=== PATIENT | female | born 1985 | race American Indian/Alaskan Native ===

== ENCOUNTER 2016-04-28 22:04 | Emergency (ER) | payer MEDICAID ==
[2016-04-28 23:10] LABS: Hematocrit 29.6 % (30.3-42.9); Hemoglobin 10.4 gm/dl (10.1-14.3); Mean Corpuscular HGB Conc 35 % (30-34); Mean Corpuscular Hemoglobin 32 pg (28-32); Mean Corpuscular Volume 91 fl (79-97); Platelet Count 232 K/mm3 (140-440); Red Blood Count 3.27 M/mm3 (3.65-5.03); Red Cell Distribution Width 13.9 % (13.2-15.2)
[2016-04-28 23:26] LABS: Blood Urea Nitrogen 8 mg/dL (7-17); Calcium 8.8 mg/dL (8.4-10.2); Carbon Dioxide 22 mmol/L (22-30); Chloride 97.5 mmol/L (98-107); Glucose 78 mg/dL (65-100); Sodium 133 mmol/L (137-145)
[2016-04-28 23:27] LABS: Anion Gap 18 mmol/L
--- NOTE | 2016-04-29 00:12 | Ultrasound Report ---
FINAL REPORT PROCEDURE: US OB \T\lt; = 14 WEEKS FETUS TECHNIQUE: Real-time transabdominal sonography of the uterus, placenta, amniotic fluid, adnexa, and fetus was performed with image documentation. Measurements were obtained to determine age/size. M-mode Doppler was used to document heartbeat. CPT 70379 HISTORY: with pelvic pain and abdominal pain. COMPARISON: No prior studies are available for comparison. FINDINGS: There is a single live intrauterine fetus with heart rate 148 beats per minute. Based on crown-rump length this fetus is measuring 13 weeks and 2 days in age which gives a due date of November 01, 2016 based on this exam. There no prior ultrasound exams to compare. A yolk sac is not seen. There is no ultrasound evidence of subchorionic hemorrhage. The right ovary measures 2.8 x 2.4 x 2.1 centimeter. The left ovary measures 2.9 x 2.7 x 2.3 centimeters. Both ovaries show no ultrasound abnormality. IMPRESSION: 1. There is a single live intrauterine fetus measuring 13 weeks and 2 days by crown-rump length which gives a due date of November 01, 2016 based on this exam. 2. There is no ultrasound evidence of subchorionic hemorrhage. 3. The ovaries demonstrate no ultrasound abnormality. 4. There are no gross anomalies noted. However this is still a 1st trimester ultrasound and therefore routine detailed anatomic evaluation is limited. A follow-up ultrasound later in is recommended for routine anatomic evaluation.
[2016-04-29] MEDS ORDERED: ZOFRAN PO ONE (01:40)
--- NOTE | 2016-04-29 01:42 | Emergency Department Report ---
ED Female HPI - General Chief complaint: Abdominal Pain Stated complaint: CHEST PAIN, LOWER ABD PAIN Time Seen by Provider: 04/29/16 01:27 Source: patient Mode of arrival: Ambulatory Limitations: No Limitations - History of Present Illness Initial comments: Patient reports being approximately 13-14 weeks by dates. She indicates that today she had to have episodes of vaginal spotting. She also reports a vaginal discharge that has been persistent for the past several weeks. She did see her pediatric physiatrist regarding this and was noted to have trichomoniasis. She did undergo treatment of metronidazole but was never able to keep the pills down very long due to nausea. Pain significant pelvic pain with this she still has some ongoing nausea associated with her . She is otherwise feeling relatively well. Patient does endorse some chest pain associated with her nausea as well. MD Complaint: vaginal bleeding Onset/Timin -: Sudden, days(s) Radiation: non-radiating Severity: mild Consistency: now resolved Improves with: none Worsens with: none - Related Data Home Medications Medication Instructions Recorded Confirmed Last Taken Ondansetron [Zofran ODT TAB] 4 mg PO Q8HR PRN 04/29/16 04/29/16 Unknown Zvn440/FA/Omega3/Dha/Fish Oil 1 each PO DAILY 04/29/16 04/29/16 Unknown [ Gummies] Previous Rx's Medication Instructions Recorded Last Taken Type metroNIDAZOLE [Vandazole GEL] 1 applic VG QHS #5 gel.w.appl 04/29/16 Unknown Rx Allergies Allergy/AdvReac Type Severity Reaction Status Date / Time No Known Allergies Allergy Verified 03/05/16 13:12 ED Review of Systems ROS: Stated complaint: CHEST PAIN, LOWER ABD PAIN Other details as noted in HPI Constitutional: denies: chills, fever Eyes: denies: eye pain, eye discharge, vision change ENT: denies: ear pain, throat pain Respiratory: denies: cough, shortness of breath, wheezing Cardiovascular: chest pain. denies: palpitations Endocrine: no symptoms reported Gastrointestinal: abdominal pain. denies: nausea, diarrhea Genitourinary: discharge, other (vaginal bleeding). denies: urgency, dysuria Musculoskeletal: denies: back pain, joint swelling, arthralgia Skin: denies: rash, lesions Neurological: denies: headache, weakness, paresthesias Psychiatric: denies: anxiety, depression Hematological/Lymphatic: denies: easy bleeding, easy bruising ED Past Medical Hx - Past Medical History Previous Medical History?: No - Surgical History Past Surgical History?: No - Social History Smoking Status: Never Smoker Substance Use Type: None - Medications Home Medications: Home Medications Medication Instructions Recorded Confirmed Last Taken Type Ondansetron [Zofran ODT TAB] 4 mg PO Q8HR PRN 04/29/16 04/29/16 Unknown History Vft072/FA/Omega3/Dha/Fish Oil 1 each PO DAILY 04/29/16 04/29/16 Unknown History [ Gummies] metroNIDAZOLE [Vandazole GEL] 1 applic VG QHS #5 gel.w.appl 04/29/16 Unknown Rx ED Physical Exam - General Limitations: No Limitations General appearance: alert, in no apparent distress - Head Head exam: Present: atraumatic, normocephalic - Eye Eye exam: Present: normal appearance - ENT ENT exam: Present: mucous membranes moist - Neck Neck exam: Present: normal inspection - Respiratory Respiratory exam: Present: normal lung sounds bilaterally. Absent: respiratory distress - Cardiovascular Cardiovascular Exam: Present: regular rate, normal rhythm. Absent: systolic murmur, diastolic murmur, rubs, gallop - GI/Abdominal GI/Abdominal exam: Present: soft, normal bowel sounds, other (gravid uterus consistent with dates). Absent: distended, tenderness - Rectal Rectal exam: Present: deferred - External exam: Present: normal external exam Speculum exam: Present: vaginal discharge (copious grayish frothy malodorous cervix closed.) Bi-manual exam: Present: uterine enlargement (distant with dates. No adnexal fullness.). Absent: cervical motion tendernes - Extremities Exam Extremities exam: Present: normal inspection. Absent: pedal edema, calf tenderness - Back Exam Back exam: Present: normal inspection - Neurological Exam Neurological exam: Present: alert, oriented X3 - Psychiatric Psychiatric exam: Present: normal affect, normal mood - Skin Skin exam: Present: warm, dry, intact, normal color. Absent: rash ED Course Vital Signs 04/28/16 04/29/16 04/29/16 22:24 01:10 01:12 Temperature 98.9 F 98.6 F Pulse Rate 74 75 Respiratory 18 20 20 Rate Blood Pressure 102/66 Blood Pressure 110/60 [Right] O2 Sat by Pulse 100 100 100 Oximetry 04/29/16 04:24 Temperature 98.5 F Pulse Rate 77 Respiratory 20 Rate Blood Pressure Blood Pressure 112/68 [Right] O2 Sat by Pulse 99 Oximetry - Reevaluation(s) Reevaluation #1: 04/29/16 06:09 Several issues at play here. First of May the , ultrasound is reassuring. Spine sounds very minimal. I have a low suspicion for threatened miscarriage. Patient was still given this diagnosis. She is noted to be be negative. She did get a RhoGAM injection at 7 weeks. I do feel based on the research with new bleeding after 13 weeks she does require any RhoGAM injection this was provided. Next issue is her vaginal discharge. This is noted to have trichomoniasis and can. Inadequate treatment the first time. We'll do vaginal suppositories this time to allow better compliance. Routine precautions were given as well. In regards to the chest discomforts ECG was obtained here demonstratingno concerning findings. I believe her chest pain is due to some reflux problems versus just some esophagitis due to her frequent vomiting. Do not have suspicion for Boerhaave's or cardiac etiology do not suspect pulmonary embolism. ED Medical Decision Making - Lab Data Result diagrams: 04/28/16 22:49 04/28/16 22:49 - EKG Data -: EKG Interpreted by Me EKG shows normal: sinus rhythm, axis, intervals, QRS complexes, ST-T waves Rate: normal - EKG Data Interpretation: normal EKG - Radiology Data Radiology results: report reviewed, image reviewed There is a single live intrauterine fetus measuring 13 weeks and 2 days ultrasound evidence of subchorionic hemorrhage. No gross abnormalities noted. Critical care attestation.: If time is entered above; I have spent that time in minutes in the direct care of this critically ill patient, excluding procedure time. ED Disposition Clinical Impression: Threatened in first trimester, Trichomonal vaginitis Disposition: DISCHARGED TO HOME OR SELFCARE Is pt being admited?: No Does the pt Need Aspirin: No Condition: Stable Instructions: Threatened Miscarriage (ED), Trichomoniasis (ED) Prescriptions: metroNIDAZOLE [Vandazole GEL] 1 applic VG QHS #5 gel.w.appl Referrals: PRIMARY CARE, [Primary Care Provider] - 3-5 Days Time of Disposition: 03:44
[2016-04-29 01:50] LABS: Bacteria,Urine 1+ /HPF (Negative); Bilirubin,Urine NEG (Negative); Blood,Urine NEG (Negative); Ketones,Urine TR mg/dL (Negative); Leukocyte Esterase,Urine TR (Negative); Mucus,Urine 3+ /HPF; Nitrite,Urine NEG (Negative)
[2016-04-29] MEDS ORDERED: ZOFRAN ODT PO ONE (01:52)
[2016-04-29 04:25] VITALS: BP 112/68
== END 2016-04-29 04:43 | disposition home or self-care (01) ==
LOC: ED 22:04
DX: O20.0 Threatened abortion (principal); Z3A.13 13 weeks gestation of pregnancy; O98.311 Other infections with a predominantly sexual mode of transmission complicating pregnancy, first trimester; A59.01 Trichomonal vulvovaginitis
CPT/HCPCS: 36415; 76801; 80048; 81001; 84702; 85027; 85461; 86850; 86900; 86901; 87210; 87591; 93005; 93010; Q0162

== ENCOUNTER 2016-08-26 19:48 | Outpatient (CLI) | payer MEDICAID ==
[2016-08-26 20:07] VITALS: BP 113/76
[2016-08-26] MEDS ORDERED: LACTATED RINGERS 500 ML IV ONE (21:00)
[2016-08-26 21:12] LABS: Bilirubin,Urine NEG (Negative); Blood,Urine NEG (Negative); Ketones,Urine NEG (Negative); Leukocyte Esterase,Urine TR (Negative); Mucus,Urine 1+ /HPF; Nitrite,Urine NEG (Negative); Protein,Urine <15 mg/dL mg/dL (Negative)
[2016-08-26] MEDS ORDERED: BRETHINE SUB-Q ONE (21:41)
[2016-08-26 21:58] LABS: Hematocrit 29.5 % (30.3-42.9); Hemoglobin 10.4 gm/dl (10.1-14.3); Mean Corpuscular HGB Conc 35 % (30-34); Mean Corpuscular Hemoglobin 31 pg (28-32); Mean Corpuscular Volume 89 fl (79-97); Platelet Count 215 K/mm3 (140-440); Red Blood Count 3.33 M/mm3 (3.65-5.03); Red Cell Distribution Width 13.9 % (13.2-15.2); White Blood Count 6.9 K/mm3 (4.5-11.0)
[2016-08-27] MEDS ORDERED: LACTATED RINGERS 1,000 ML IV SCH (01:00)
== END 2016-08-27 00:40 | disposition home or self-care (01) ==
LOC: TRG 19:48 → LD 19:49 → TRG 08-27 00:40
PROVIDERS: ATTEND Obstetrics & Gynecology
DX: O46.93 Antepartum hemorrhage, unspecified, third trimester (principal); Z3A.28 28 weeks gestation of pregnancy
CPT/HCPCS: 36415; 59025; 81001; 82731; 85027; 96360; 96361; 96372; J3105; J7120

== ENCOUNTER 2016-10-22 20:11 | Outpatient (CLI) | payer MEDICAID ==
[2016-10-22 20:41] VITALS: BP 119/70
[2016-10-22] MEDS ORDERED: VISTARIL PO ONE (21:45)
== END 2016-10-22 21:48 | disposition home or self-care (01) ==
LOC: TRG 20:11
PROVIDERS: ATTEND Obstetrics & Gynecology
DX: O47.1 False labor at or after 37 completed weeks of gestation (principal); Z3A.37 37 weeks gestation of pregnancy
CPT/HCPCS: Q0177

== ENCOUNTER 2016-10-28 17:51 | Inpatient (IN) | payer MEDICAID ==
[2016-10-28 18:53] LABS: Bilirubin,Urine SM (Negative); Blood,Urine NEG (Negative); Ketones,Urine TR mg/dL (Negative); Leukocyte Esterase,Urine SM (Negative); Mucus,Urine 3+ /HPF; Nitrite,Urine NEG (Negative)
[2016-10-28] MEDS ORDERED: LACTATED RINGERS 1,000 ML IV SCH ×2 (19:00→23:00)
--- NOTE | 2016-10-28 21:08 | Event Note ---
Date: 10/28/16 Negative pool, negative fern, TOAN 11, cervical change from 05/04/2 by my exam to 3cm per rn, order given to walk patient and recheck in 1hour. According to RN patient declined walking and being rechecked and desired d/c home. While completing a delivery the psychometrician informed me the patient left. No order was given to allow patient home.
[2016-10-28] MEDS ORDERED: PHENERGAN PO PRN (22:32)
[2016-10-28] MEDS ORDERED: NUBAIN IV PRN (22:32)
[2016-10-28] MEDS ORDERED: ePHEDrine SULFATE IV PRN (22:32)
[2016-10-28] MEDS ORDERED: PHENERGAN PR PRN (22:32)
[2016-10-28] MEDS ORDERED: NARCAN 0.4 MG/1 ML IV PRN (22:32)
[2016-10-28] MEDS ORDERED: MINERAL OIL PO PRN (22:32)
[2016-10-28] MEDS ORDERED: SUBLIMAZE IV PRN (22:32)
[2016-10-28] MEDS ORDERED: ZOFRAN IV PRN (22:32)
[2016-10-28] MEDS ORDERED: BRETHINE SUB-Q PRN (22:32)
[2016-10-28] MEDS ORDERED: BRETHINE IVP PRN (22:32)
[2016-10-28] MEDS ORDERED: XYLOCAINE 2% INFILTRATI ONE (22:32)
[2016-10-28] MEDS ORDERED: STADOL IV PRN (22:32)
--- NOTE | 2016-10-28 22:53 | History and Physical Report ---
History of Present Illness Date of examination: 10/28/16 Chief complaint: Uterine contractions History of present illness: Patient presented to triage to be evaluated for possible ROM, negative pool, negative fern, cervix was 2/-3. Irregular UC's noted. After nml TAON confirmed she was rechecked by RN and found to be 3cm, she walked for one hour and her cervix dilated to 4cm she's admitted now for early labor Past History : 3 Term Births: 2 Living Children: 2 Para: 2 # 1 Delivery date: 05/2005 Weeks Gestation: term Delivery type: Anesthesia type: epidural Delivery location: [facility] Sex: Male weight: 6-2 Comments: denies complications # 2 Delivery date: 02/2009 Weeks Gestation: term Delivery type: Anesthesia type: none Delivery location: [place] Sex: Female weight: 6-1 Comments: denies complications Past Medical History: Negative Past Medical History Past Surgical History: Cervical cryo 2011 Past Medical History Surgery (Non-deputy county clerk): Cervical cryo 2011 Abnormal PAP: positive ALONSO Exposure: negative Infertility: negative Uterine Anomaly: negative Uterine Surgery (not C/S): negative Other Gynecologic Problems: negative Infection History Hx of STD: HPV HIV Risk Eval: low risk Hepatitis B Risk Eval: low risk Personal hx. of genital herpes: no Partner hx. of genital herpes: no Rash, Viral, or Febrile illness since last LMP? no Varicella/Chicken Pox Status: Unknown TB Risk: no Infection History Comments: Trich Genetic History Congenital Heart Defect: Mom: no Dad: no Alix Disease: Mom: no Dad: no Thalassemia Mom: no Dad: no Neural Tube Defect Mom: no Dad: no Down's Syndrome Mom: no Dad: no Dru-Sachs Mom: no Dad: no Sickle Cell Disease/Trait Mom: no Dad: no Hemophilia Mom: no Dad: no Muscular Dystrophy Mom: no Dad: no Cystic Fibrosis Mom: no Dad: no [place] Chorea Mom: no Dad: no Mental Retardation Mom: no Dad: no Fragile X Mom: no Dad: no Other Genetic/Chromosomal Disorder Mom: yes Dad: no Child w/other defect Mom: no Dad: no Comments/Counseling: brother has SCT Enviromental Exposures Xray Exposure: no Medication, drug, or alcohol use since LMP: no Chemical/Other Exposure: no Exposure to Cat Liter: no Hx of Parvovirus (Fifth Disease): no Occupational Exposure to Children: none Comments: FORREST is a very heavy smoker Current Allergies (reviewed today): No known allergies Past History - Obstetrical History Expected Date of Delivery: 11/07/16 Actual Gestation: 38 Week(s) 4 Day(s) : 3 Medications and Allergies Allergies Allergy/AdvReac Type Severity Reaction Status Date / Time No Known Allergies Allergy Verified 03/05/16 13:12 Home Medications Medication Instructions Recorded Confirmed Last Taken Type Ondansetron [Zofran ODT TAB] 4 mg PO Q8HR PRN 04/29/16 10/28/16 10/28/16 History Qdd233/FA/Omega3/Dha/Fish Oil 1 each PO DAILY 04/29/16 10/28/16 1 Day Ago History [ Gummies] Active Meds: Active Medications Butorphanol Tartrate (Stadol) 2 mg IV Q2H PRN PRN Reason: Pain , Severe (7-10) Fentanyl (Sublimaze) 100 mcg IV Q2H PRN PRN Reason: Labor Pain Lactated Ringer's (Lactated Ringers) 1,000 mls @ 999 mls/hr IV DIRECT GEO Last Admin: 10/28/16 19:45 Dose: 999 mls/hr Lactated Ringer's (Lactated Ringers) 1,000 mls @ 125 mls/hr IV DIRECT GEO Oxytocin/Sodium Chloride (Pitocin/Ns 20 Unit/1000ml Drip) 20 units in 1,000 mls @ 125 mls/hr IV DIRECT GEO Oxytocin/Sodium Chloride (Pitocin/Ns 30 Unit/500ml) 30 units in 500 mls @ 1 mls /hr IV TITR GEO; 1 MILLIUNITS/MIN PRN Reason: Protocol Mineral Oil (Mineral Oil) 30 ml PO QHS PRN PRN Reason: Constipation Nalbuphine HCl (Nubain) 10 mg IV Q2H PRN PRN Reason: Pain, Moderate (4-6) Naloxone HCl (Narcan 0.4 Mg/1 Ml) 0.1 mg IV Q2MIN PRN PRN Reason: Res Rate </= 8 or 02 SAT < 92% Ondansetron HCl (Zofran) 4 mg IV Q8H PRN PRN Reason: Nausea And Vomiting Promethazine HCl (Phenergan) 25 mg PO Q6H PRN PRN Reason: Nausea And Vomiting Promethazine HCl (Phenergan) 25 mg NE Q6H PRN PRN Reason: N/V if unable to take po Review of Systems All systems: negative Genitourinary: leakage of fluid, contractions - Vital Signs Vital signs: Vital Signs Pulse Pulse Ox 84 100 10/28/16 18:11 10/28/16 18:11 Temp Pulse Resp BP Pulse Ox 99.2 F 107 H 16 114/72 100 10/28/16 18:23 10/28/16 21:37 10/28/16 18:23 10/28/16 21:37 10/28/16 20:21 - Physical Exam Breasts: Positive: deferred Lungs: Positive: Normal air movement Abdomen: Positive: normal appearance, soft Vulva: both: normal Uterus: Positive: enlarged Extremities: Positive: normal. Negative: tenderness, edema Deep Tendon Reflex Grade: Normal +2 - Obstetrical FHR: category 1 Uterine Contraction Monitor Mode: External Cervical Dilatation: 4 Cervical Effacement Percentage: 100 station: -2 Uterine Contraction Pattern: Regular Results Abnormal lab results 10/28/16 Range/Units 18:32 Urine WBC (Auto) 10.0 H (0.0-6.0) /HPF All other labs normal. Assessment and Plan - Patient Problems (1) 38 weeks gestation of Current Visit: Yes Status: Acute (2) Uterine contractions during Current Visit: Yes Status: Acute Plan to address problem: Early labor at term, will admitted, anticipate vaginal delivery
[2016-10-28] MEDS ORDERED: PITOCin/NS 30 UNIT/500ML 30 UNITS/500 ML BAG IV SCH (23:00)
[2016-10-28 23:30] LABS: Hematocrit 29.8 % (30.3-42.9); Hemoglobin 10.6 gm/dl (10.1-14.3); Mean Corpuscular HGB Conc 36 % (30-34); Mean Corpuscular Hemoglobin 29 pg (28-32); Mean Corpuscular Volume 81 fl (79-97); Platelet Count 243 K/mm3 (140-440); Red Blood Count 3.68 M/mm3 (3.65-5.03); Red Cell Distribution Width 16.8 % (13.2-15.2); White Blood Count 9.6 K/mm3 (4.5-11.0)
[2016-10-29] MEDS ORDERED: ePHEDrine SULFATE ONE (00:29)
[2016-10-29] MEDS ORDERED: NARCAN 2 MG/2 ML IV PRN (01:11)
[2016-10-29] MEDS ORDERED: ePHEDrine SULFATE IV PRN (01:11)
--- NOTE | 2016-10-29 01:12 | Anesthesia Consultation ---
Anesthesia Consult and Med Hx Date of service: 10/29/16 - Airway Anesthetic Teeth Evaluation: Good ROM Head & Neck: Adequate Mental/Hyoid Distance: Adequate Mallampati Class: Class II Intubation Access Assessment: Probably Good - Pulmonary Exam CTA: Yes - Cardiac Exam Cardiac Exam: RRR - Pre-Operative Health Status ASA Pre-Surgery Classification: ASA2 Proposed Anesthetic Plan: Epidural, Spinal - Pulmonary Hx Asthma: No COPD: No Hx Pneumonia: No - Cardiovascular System Hx Hypertension: No - Central Nervous System Hx Seizures: No Hx Psychiatric Problems: No - Endocrine Hx Renal Disease: No Hx End Stage Renal Disease: No Hx Hypothyroidism: No Hx Hyperthyroidism: No - Hematic Hx Anemia: No Hx Sickle Cell Disease: No - Other Systems Hx Alcohol Use: No - Additional Comments Anesthesia Medical History Comments: +IUP
[2016-10-29] MEDS ORDERED: fentaNYL-BUPIV 2 MCG/ML-0.125% 200 MCG/100 ML BAG EPIDURAL SCH (02:00)
[2016-10-29] MEDS: PITOCin/NS 20 UNIT/1000ML DRIP 20 UNITS/1,000 ML BAG IV SCH ×2 (03:20→04:31)
[2016-10-29] MEDS ORDERED: METHERGINE IM ONE (03:25)
--- NOTE | 2016-10-29 03:43 | Procedure Note ---
OB Delivery Note - Delivery Date of Delivery: 10/29/16 Surgeon: CJ CAMACHO Estimated blood loss: other (400Ml) - Vaginal Delivery presentation: vertex Delivery position: OA Intrapartum events: none, uterine atony (MILD, resolved with pitocin, uterine , massage, emptied bladder and methergine) Delivery induction: none Delivery monitor: external FHT, external uterine Route of delivery: Delivery placenta: spontaneous (INTACT) Episiotomy: none Delivery laceration: none Anesthesia: epidural - Infant A at 1 minute: 8 at 5 minutes: 9 Gender: Female (6#3, skin to skin and delayed cord clamping performed)
[2016-10-29] MEDS ORDERED: METHERGINE IM PRN (05:31)
[2016-10-29] MEDS ORDERED: HEMABATE IM PRN (05:31)
[2016-10-29] MEDS ORDERED: TORADOL IV PRN (05:31)
[2016-10-29] MEDS ORDERED: DULCOLAX PR PRN (05:31)
[2016-10-29] MEDS ORDERED: SODIUM CHLORIDE FLUSH SYRINGE 10 ML IV PRN (05:31)
[2016-10-29] MEDS ORDERED: ZOFRAN IV PRN (05:31)
[2016-10-29] MEDS ORDERED: PHENERGAN PR PRN (05:31)
[2016-10-29] MEDS ORDERED: CYTOTEC PR PRN (05:31)
[2016-10-29] MEDS ORDERED: PHENERGAN PO PRN (05:31)
[2016-10-29] MEDS ORDERED: BENADRYL PO PRN (05:31)
[2016-10-29] MEDS ORDERED: TUCKS PAD TP PRN (05:31)
[2016-10-29] MEDS ORDERED: MILK OF MAGNESIA PO PRN (05:31)
[2016-10-29] MEDS ORDERED: TYLENOL PO PRN (05:31)
[2016-10-29] MEDS ORDERED: LANSINOH TP PRN (05:31)
[2016-10-29] MEDS: MOTRIN PO SCH ×3 (06:20→17:07)
[2016-10-29] MEDS: PERCOCET 5/325 PO PRN (06:21)
--- NOTE | 2016-10-29 07:32 | Ultrasound Report ---
Gestation: Single Position: Cephalic Amniotic Fluid: TOAN = 11.9 cm Placenta: Fungal Placental Grade: Grade 2 Heart Rate: 1.6 BPM
[2016-10-29 15:34] LABS: Hematocrit 25.5 % (30.3-42.9); Hemoglobin 8.7 gm/dl (10.1-14.3)
[2016-10-30] MEDS: MOTRIN PO SCH ×5 (00:03→23:40)
[2016-10-30] MEDS ORDERED: BOOSTRIX IM ONE (06:00)
--- NOTE | 2016-10-30 07:22 | Discharge Summary ---
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 VSS FF below umb Lochia small Perineum intact H&H 11/16 drop r/t blood loss from delivery Doing well s/p vag delivery P : d/c today with instructions Depo at d/c Condition at discharge: Good Disposition: DC-01 TO HOME OR SELFCARE - Discharge Diagnoses (1) Spontaneous vaginal delivery Status: Acute Comment: rto 4 weeks PP care Plan - Discharge Medications Prescriptions: Docusate Sodium [Colace] 100 mg PO BID PRN #60 capsule PRN Reason: Constipation Ferrous Sulfate [Feosol 325 MG tab] 325 mg PO BID #60 tablet Ibuprofen [Motrin 800 MG tab] 800 mg PO TID PRN #30 tablet PRN Reason: Pain - Provider Discharge Summary Activity: routine, no sex for 6 weeks, no heavy lifting 4 weeks, no strenuous exercise Diet: routine Instructions: routine Additional instructions: [] Smoking cessation referral if applicable(refer to patient education folder for contact #) [] Refer to [facility] Booklet Call your doctor immediately for: * Fever > 100.5 * Heavy vaginal bleeding ( >1 pad per hour) * Severe persistent headache * Shortness of breath * Reddened, hot, painful area to leg or breast * Drainage or odor from incision. * Keep incision clean and dry at all times and follow doctor's instructions regarding bathing/showering - Follow up plan Follow up: PRIMARY CARE, [Primary Care Provider] - 7 Days CRYS DWYER CNM [Advanced Practice Nurse] - 6 Weeks (Congratulations! Please call [phone] to schedule your visit in 4-6 weeks. Take medications as prescribed. Call with concerns.)
--- NOTE | 2016-10-30 09:44 | Progress Note ---
Subjective Date of service: 10/30/16 Interval history: 1st day after normal vaginal delivery Patient is in the bed, comfortable. pain is well controlled with pain meds. Ambulated well. No residual neurological deficit. No anesthesia complications Objective - Constitutional Vitals: Vital Signs - 12hr 10/30/16 10/30/16 10/30/16 00:03 00:45 05:52 Temperature 98.9 F Pulse Rate 82 Respiratory 18 18 18 Rate Blood Pressure 96/57 10/30/16 08:40 Temperature 98.3 F Pulse Rate 73 Respiratory 18 Rate Blood Pressure 101/68 - Labs CBC & Chem 7: 10/29/16 15:17 Labs: Abnormal lab results 10/29/16 Range/Units 15:17 Hgb 8.7 L (10.1-14.3) gm/dl Hct 25.5 L (30.3-42.9) %
[2016-10-30] MEDS: PERCOCET 5/325 PO PRN (10:50)
[2016-10-30] MEDS ORDERED: DEPO-PROVERA (CONTRACEPTION) IM ONE (12:00)
[2016-10-31] MEDS: MOTRIN PO SCH ×2 (06:04→12:16)
[2016-10-31 08:58] VITALS: BP 95/63
== END 2016-10-31 16:00 | disposition home or self-care (01) | DRG 775 ==
LOC: TRG 17:51 → LD 23:01 → OB 10-29 05:25
PROVIDERS: ADMIT Obstetrics & Gynecology; ATTEND Obstetrics & Gynecology
PROC: 10E0XZZ Delivery of Products of Conception, External Approach (ICD-10-PCS; principal; 2016-10-29)
PROC: 00HU33Z Insertion of Infusion Device into Spinal Canal, Percutaneous Approach (ICD-10-PCS; principal; 2016-10-29)
PROC: 3E0R3CZ (ICD-10-PCS; principal; 2016-10-29)
DX: O62.2 Other uterine inertia (principal); Z3A.38 38 weeks gestation of pregnancy; Z37.0 Single live birth; O62.9 Abnormality of forces of labor, unspecified; R71.0 Precipitous drop in hematocrit; O75.89 Other specified complications of labor and delivery
CPT/HCPCS: 36415; 76815; 81001; 85014; 85018; 85027; 86592; 86850; 86900; 86901; 90471; 90715; 99211; A6250; G0463; J1050; J2210; J2590; J3010; J7120

== ENCOUNTER 2017-01-31 19:52 | Emergency (ER) | payer MEDICAID ==
[2017-01-31 20:20] LABS: Basophils % (Auto) 0.7 % (0.0-1.8); Eosinophils % (Auto) 0.7 % (0.0-4.3); Hemoglobin 11.6 gm/dl (10.1-14.3); Mean Corpuscular HGB Conc 34 % (30-34); Mean Corpuscular Hemoglobin 26 pg (28-32); Mean Corpuscular Volume 75 fl (79-97); Platelet Count 420 K/mm3 (140-440); Red Blood Count 4.53 M/mm3 (3.65-5.03); Red Cell Distribution Width 19.2 % (13.2-15.2); White Blood Count 8.5 K/mm3 (4.5-11.0)
[2017-01-31 20:35] LABS: Anion Gap 21 mmol/L; BUN/Creatinine Ratio 18; Blood Urea Nitrogen 11 mg/dL (7-17); Calcium 9.2 mg/dL (8.4-10.2); Carbon Dioxide 22 mmol/L (22-30); Chloride 99.8 mmol/L (98-107); Glucose 96 mg/dL (65-100); Potassium 4.3 mmol/L (3.6-5.0); Sodium 138 mmol/L (137-145)
--- NOTE | 2017-01-31 22:44 | XRay Report ---
FINAL REPORT EXAM: XR CHEST ROUTINE 2V HISTORY: Shortness of breath TECHNIQUE: PA and lateral views of the chest PRIORS: None. FINDINGS: Lines, tubes, and devices: N/A Lungs and pleura: Trachea is normal in position. Lungs are clear of infiltrate, pleural effusion, vascular congestion, or pneumothorax. No change. Cardiomediastinal silhouette: Cardiac and mediastinal silhouettes are unremarkable. Other: Bony structures are intact. IMPRESSION: No acute cardiopulmonary process seen.
[2017-01-31] MEDS ORDERED: TYLENOL PO ONE (22:58)
[2017-01-31] MEDS ORDERED: TYLENOL ONE (23:01)
[2017-01-31 23:17] VITALS: BP 116/73
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
--- NOTE | 2017-02-01 04:59 | Cat Scan Report ---
FINAL REPORT EXAM: CT ANGIO CHEST HISTORY: chest pain,elevated ddimer TECHNIQUE: CT imaging obtained through the chest in pulmonary angiographic phase following intravenous administration of contrast. Transaxial, Coronal and sagittal reformats with maximal intensity projections are provided. PRIORS: Chest radiograph 01/31/2017 FINDINGS: Normal caliber main pulmonary artery. Well opacified pulmonary arterial tree. No pulmonary embolism. No pericardial effusion. Thoracic aorta is normal in course and caliber. No periaortic fluid or stranding. No pneumothorax, effusion or focal airspace disease. The central airways are patent. No bronchiectasis. Imaged portion of the upper abdomen is unremarkable. The superficial soft tissues are unremarkable. No acute bony abnormality or worrisome osseous lesions identified. IMPRESSION: No pulmonary embolism or other acute finding.
[2017-02-01] MEDS ORDERED: DUONEB *Not for PRN Use IH ONE (05:16)
== END 2017-02-01 06:44 | disposition home or self-care (01) ==
LOC: ED 19:52
DX: J98.01 Acute bronchospasm (principal)
CPT/HCPCS: 36415; 71020; 71275; 80048; 83880; 84484; 84703; 85025; 85379; 93005; 93010; 94640; 99285; Q9967

== ENCOUNTER 2018-05-30 04:14 | Emergency (ER) | payer MEDICAID, OTHER ==
[2018-05-30 05:09] LABS: Basophils % (Auto) 0.5 % (0.0-1.8); Eosinophils # (Auto) 0.1 K/mm3 (0.0-0.4); Eosinophils % (Auto) 1.5 % (0.0-4.3); Hematocrit 40.7 % (30.3-42.9); Lymphocytes # (Auto) 2.5 K/mm3 (1.2-5.4); Lymphocytes % (Auto) 46.6 % (13.4-35.0); Mean Corpuscular HGB Conc 35 % (30-34); Mean Corpuscular Volume 87 fl (79-97); Monocytes # (Auto) 0.7 K/mm3 (0.0-0.8); Monocytes % (Auto) 12.6 % (0.0-7.3); Platelet Count 298 K/mm3 (140-440); Red Blood Count 4.66 M/mm3 (3.65-5.03)
[2018-05-30 05:32] LABS: Alanine Aminotransferase 17 units/L (7-56); Albumin 4.7 g/dL (3.9-5); BUN/Creatinine Ratio 13; Blood Urea Nitrogen 9 mg/dL (7-17); Calcium 8.9 mg/dL (8.4-10.2); Hemolysis Index 3
--- NOTE | 2018-05-30 06:00 | Emergency Department Report ---
ED General Adult HPI - General Chief complaint: Abdominal Pain Stated complaint: CHEST PAIN BODY ACHE VAG BLEEDING Time Seen by Provider: 05/30/18 05:45 Source: patient Mode of arrival: Ambulatory Limitations: No Limitations - History of Present Illness Initial comments: 32-year-old -Cypriot female presents to the emergency room for left sided abdominal pain with vaginal bleeding 3 weeks. Patient also complains of chest pain with nausea vomiting 4 days. Chest pain radiates down to the left side. Patient reports that the left abdominal pain is intermittent but when 8 comes it comes apart per palpation patient reports that he can radiate down to her leg. Vaginal bleeding she has gone through 4 pads on Saturday had stopped on . Patient reports that she is on a Depo-Provera injection. Patient has a history of precancerous cells on the cervix and had a cryo. Patient reports that she has been taking ibuprofen which she reports has not helped. She reports that she does have a primary care provider is Dr. 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 -: days(s), week(s) (3 wks with left abd pain that radiates left) Severity scale (0 -10): 0 Quality: sharp Consistency: intermittent Improves with: none Worsens with: none Associated Symptoms: chest pain, nausea/vomiting. denies: fever/chills Treatments Prior to Arrival: none - Related Data Home Medications Medication Instructions Recorded Confirmed Last Taken Ondansetron [Zofran ODT TAB] 4 mg PO Q8HR PRN 04/29/16 10/28/16 10/28/16 Pnv No.103/Folic/Om3s/Fish Oil 1 each PO DAILY 04/29/16 10/28/16 1 Day Ago [ Gummies] ~10/27/16 Previous Rx's Medication Instructions Recorded Last Taken Type Docusate Sodium [Colace] 100 mg PO BID PRN #60 capsule 10/30/16 Unknown Rx Ferrous Sulfate [Feosol 325 MG tab] 325 mg PO BID #60 tablet 10/30/16 Unknown Rx ALBUTEROL Inhaler (OR & NICU) 2 puff IH QID PRN #1 inhalation 02/01/17 Unknown Rx [Proair] Ibuprofen [Motrin 800 MG tab] 800 mg PO TID PRN #30 tablet 05/30/18 Unknown Rx Allergies Allergy/AdvReac Type Severity Reaction Status Date / Time No Known Allergies Allergy Verified 03/05/16 13:12 ED Review of Systems ROS: Stated complaint: CHEST PAIN BODY ACHE VAG BLEEDING Other details as noted in HPI Comment: All other systems reviewed and negative Constitutional: no symptoms reported Cardiovascular: chest pain Gastrointestinal: abdominal pain Genitourinary: other (vaginal bleeding) ED Past Medical Hx - Past Medical History Previous Medical History?: No Hx Hypertension: No Hx Congestive Heart Failure: No Hx Diabetes: No Hx Deep Vein Thrombosis: No Hx Renal Disease: No Hx Sickle Cell Disease: No Hx Seizures: No Hx Asthma: No Hx COPD: No Hx HIV: No - Surgical History Past Surgical History?: No - Social History Smoking Status: Former Smoker Substance Use Type: None - Medications Home Medications: Home Medications Medication Instructions Recorded Confirmed Last Taken Type Ondansetron [Zofran ODT TAB] 4 mg PO Q8HR PRN 04/29/16 10/28/16 10/28/16 History Pnv No.103/Folic/Om3s/Fish Oil 1 each PO DAILY 04/29/16 10/28/16 1 Day Ago History [ Gummies] ~10/27/16 Docusate Sodium [Colace] 100 mg PO BID PRN #60 capsule 10/30/16 Unknown Rx Ferrous Sulfate [Feosol 325 MG tab] 325 mg PO BID #60 tablet 10/30/16 Unknown Rx ALBUTEROL Inhaler (OR & NICU) 2 puff IH QID PRN #1 inhalation 02/01/17 Unknown Rx [Proair] Ibuprofen [Motrin 800 MG tab] 800 mg PO TID PRN #30 tablet 05/30/18 Unknown Rx ED Physical Exam - General Limitations: No Limitations General appearance: alert, in no apparent distress - Head Head exam: Present: atraumatic, normocephalic - Eye Eye exam: Present: normal appearance - ENT ENT exam: Present: mucous membranes moist - Neck Neck exam: Present: normal inspection - Respiratory Respiratory exam: Present: normal lung sounds bilaterally. Absent: respiratory distress - Cardiovascular Cardiovascular Exam: Present: regular rate, normal rhythm. Absent: systolic murmur, diastolic murmur, rubs, gallop - GI/Abdominal GI/Abdominal exam: Present: soft, normal bowel sounds. Absent: tenderness - External exam: Present: normal external exam Speculum exam: Present: normal speculum exam Bi-manual exam: Present: normal bi-manual exam - Extremities Exam Extremities exam: Present: normal inspection, full ROM - Neurological Exam Neurological exam: Present: alert, oriented X3 - Psychiatric Psychiatric exam: Present: normal affect, normal mood - Skin Skin exam: Present: warm, dry, intact, normal color. Absent: rash ED Course Vital Signs 05/30/18 05/30/18 04:27 06:25 Temperature 97.8 F 98.7 F Pulse Rate 80 62 Respiratory 16 16 Rate Blood Pressure 115/75 Blood Pressure 98/55 [Left] O2 Sat by Pulse 99 100 Oximetry ED Medical Decision Making - Lab Data Result diagrams: 05/30/18 04:44 05/30/18 04:44 Laboratory Tests 05/30/18 05/30/18 05/30/18 04:44 04:44 04:44 WBC 5.4 RBC 4.66 Hgb 14.0 Hct 40.7 MCV 87 MCH 30 MCHC 35 H RDW 15.0 Plt Count 298 Lymph % (Auto) 46.6 H [place] % (Auto) 12.6 H Eos % (Auto) 1.5 Baso % (Auto) 0.5 Lymph # 2.5 [place] # 0.7 Eos # 0.1 Baso # 0.0 Seg Neutrophils % 38.8 L Seg Neutrophils # 2.1 Sodium 139 Potassium 3.7 Chloride 104.1 Carbon Dioxide 22 Anion Gap 17 BUN 9 Creatinine 0.7 Estimated GFR > 60 BUN/Creatinine Ratio 13 Glucose 96 Calcium 8.9 Total Bilirubin 0.30 AST 17 ALT 17 Alkaline Phosphatase 68 Troponin T < 0.010 Total Protein 7.5 Albumin 4.7 Albumin/Globulin Ratio 1.7 HCG, Quant < 2 Critical care attestation.: If time is entered above; I have spent that time in minutes in the direct care of this critically ill patient, excluding procedure time. ED Disposition Clinical Impression: Chest pain Qualifiers: Chest pain type: unspecified Qualified Code(s): R07.9 - Chest pain, unspecified Disposition: - TO HOME OR SELFCARE Is pt being admited?: No Does the pt Need Aspirin: No Condition: Stable Instructions: Abdominal Pain (ED), Chest Pain (ED) Additional Instructions: Please take pain medication as prescribed. Very important for you to follow up with OB. Prescriptions: Ibuprofen [Motrin 800 MG tab] 800 mg PO TID PRN #30 tablet PRN Reason: Pain Referrals: [facility] [Provider Group] - 3-5 Days Forms: Work/School Release Form(ED)
[2018-05-30 06:26] VITALS: BP 98/55
== END 2018-05-30 08:34 | disposition home or self-care (01) ==
LOC: ED 04:14
DX: R10.9 Unspecified abdominal pain (principal); N93.9 Abnormal uterine and vaginal bleeding, unspecified; R11.2 Nausea with vomiting, unspecified; R07.9 Chest pain, unspecified; Z87.891 Personal history of nicotine dependence
CPT/HCPCS: 36415; 80053; 84484; 84702; 85025; 93005; 93010

== ENCOUNTER 2019-01-08 15:05 | Emergency (ER) | payer MEDICAID, OTHER ==
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
[2019-01-08] MEDS ORDERED: TORADOL IM ONE (15:43)
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
[2019-01-08 16:23] LABS: Basophils % (Auto) 0.6 % (0.0-1.8); Eosinophils % (Auto) 0.3 % (0.0-4.3); Hematocrit 39.6 % (30.3-42.9); Hemoglobin 13.7 gm/dl (10.1-14.3); Lymphocytes # (Auto) 3.6 K/mm3 (1.2-5.4); Mean Corpuscular HGB Conc 35 % (30-34); Mean Corpuscular Volume 89 fl (79-97); Monocytes # (Auto) 0.6 K/mm3 (0.0-0.8); Monocytes % (Auto) 8.3 % (0.0-7.3); Platelet Count 277 K/mm3 (140-440); Red Blood Count 4.46 M/mm3 (3.65-5.03); Red Cell Distribution Width 14.5 % (13.2-15.2)
[2019-01-08 16:33] LABS: BUN/Creatinine Ratio 17; Blood Urea Nitrogen 10 mg/dL (7-17); Calcium 9.2 mg/dL (8.4-10.2); Hemolysis Index 46
--- NOTE | 2019-01-08 16:40 | XRay Report ---
CHEST 2 VIEWS INDICATION: sob/cp. COMPARISON: 01/31/2017 FINDINGS: Support devices: None. Heart: Within normal limits. Pulmonary vasculature: Normal. Lungs/pleura: The lungs are normally expanded and clear. No pleural effusion. No pneumothorax. Additional findings: None. IMPRESSION: 1. No acute findings. Signer Name: Barney Stiles MD Signed: 01/08/2019 4:36 PM Workstation Name: [id number]
--- NOTE | 2019-01-08 17:49 | Cat Scan Report ---
CTA CHEST WITH IV CONTRAST INDICATION: right sided chest pain. Acute onset chest pain with dyspnea TECHNIQUE: Axial CT images were obtained through the chest after injection of 100 mL IV contrast. 3 plane MIP re constructions were produced. All CT scans at this location are performed using CT dose reduction for ALARA by means of automated exposure control. COMPARISON: None available. FINDINGS: PULMONARY ARTERIES: No pulmonary emboli. AORTA AND ARTERIES: No acute abnormality. MEDIASTINUM: No mass, lymphadenopathy or other significant abnormality. The heart is normal in size w ithout a pericardial effusion. The trachea and main bronchi are patent and normal in caliber. LUNGS: No suspicious consolidation, nodule or mass. No pneumothorax or pleural effusion. ADDITIONAL FINDINGS: None. UPPER ABDOMEN: No acute findings. BONES: No significant osseous abnormality. IMPRESSION: 1. No CT evidence for pulmonary embolism. 2. No acute findings. Signer Name: Meño Cunha MD Signed: 01/08/2019 5:45 PM Workstation Name: [id number]
[2019-01-08 18:32] VITALS: BP 113/87
== END 2019-01-08 18:11 | disposition home or self-care (01) ==
LOC: ED 15:05
DX: R07.89 Other chest pain (principal); R09.1 Pleurisy; R06.02 Shortness of breath; Z79.899 Other long term (current) drug therapy
CPT/HCPCS: 36415; 71046; 71275; 80048; 85025; 85379; 93005; 93010; 96372; 99284; J1885; Q9967

== ENCOUNTER 2019-08-12 09:20 | Emergency (ER) | payer MEDICAID ==
[2019-08-12 09:52] VITALS: BP 107/77
[2019-08-12] MEDS ORDERED: IBUPROFEN 800 MG TAB PO ONE (10:21)
--- NOTE | 2019-08-12 10:22 | Emergency Department Report ---
ED Lower Extremity HPI - General Chief Complaint: Extremity Injury, Lower Stated Complaint: FALL TWISTED ANKLE Time Seen by Provider: 08/12/19 10:20 Source: patient Mode of arrival: Ambulatory Limitations: No Limitations - History of Present Illness Initial Comments: 33 yo comes to ER with R ankle pain sp glf at home coming down stairs. no other injury. Complaint: ankle injury -: Sudden Injury: Ankle: Right Type of Injury: eversion Place: home Severity: mild Improves With: nothing Worsens With: weight bearing Context: fall - Related Data Home Medications Medication Instructions Recorded Confirmed Last Taken Ondansetron [Zofran ODT TAB] 4 mg PO Q8HR PRN 04/29/16 10/28/16 10/28/16 Pnv No.103/Folic/Om3s/Fish Oil 1 each PO DAILY 04/29/16 10/28/16 1 Day Ago [ Gummies] ~10/27/16 Previous Rx's Medication Instructions Recorded Last Taken Type Docusate Sodium [Colace] 100 mg PO BID PRN #60 capsule 10/30/16 Unknown Rx Ferrous Sulfate [Feosol 325 MG tab] 325 mg PO BID #60 tablet 10/30/16 Unknown Rx Albuterol INH(or & Nicu Only) 2 puff IH QID PRN #1 inhalation 02/01/17 Unknown Rx [Proair] Ibuprofen [Motrin 800 MG tab] 800 mg PO TID PRN #30 tablet 05/30/18 Unknown Rx Naproxen [Naprosyn] 500 mg PO BID #14 tablet 01/08/19 Unknown Rx Allergies Allergy/AdvReac Type Severity Reaction Status Date / Time No Known Allergies Allergy Verified 03/05/16 13:12 ED Review of Systems ROS: Stated complaint: FALL TWISTED ANKLE Other details as noted in HPI Comment: All other systems reviewed and negative ED Past Medical Hx - Past Medical History Previous Medical History?: No Hx Hypertension: No Hx Congestive Heart Failure: No Hx Diabetes: No Hx Deep Vein Thrombosis: No Hx Renal Disease: No Hx Sickle Cell Disease: No Hx Seizures: No Hx Asthma: No Hx COPD: No Hx HIV: No - Surgical History Past Surgical History?: No - Social History Smoking Status: Never Smoker Substance Use Type: None - Medications Home Medications: Home Medications Medication Instructions Recorded Confirmed Last Taken Type Ondansetron [Zofran ODT TAB] 4 mg PO Q8HR PRN 04/29/16 10/28/16 10/28/16 History Pnv No.103/Folic/Om3s/Fish Oil 1 each PO DAILY 04/29/16 10/28/16 1 Day Ago History [ Gummies] ~10/27/16 Docusate Sodium [Colace] 100 mg PO BID PRN #60 capsule 10/30/16 Unknown Rx Ferrous Sulfate [Feosol 325 MG tab] 325 mg PO BID #60 tablet 10/30/16 Unknown Rx Albuterol INH(or & Nicu Only) 2 puff IH QID PRN #1 inhalation 02/01/17 Unknown Rx [Proair] Ibuprofen [Motrin 800 MG tab] 800 mg PO TID PRN #30 tablet 05/30/18 Unknown Rx Naproxen [Naprosyn] 500 mg PO BID #14 tablet 01/08/19 Unknown Rx ED Physical Exam - General Limitations: No Limitations General appearance: alert, in no apparent distress - Head Head exam: Present: atraumatic, normocephalic - Eye Eye exam: Present: normal appearance - ENT ENT exam: Present: mucous membranes moist - Neck Neck exam: Present: normal inspection - Respiratory Respiratory exam: Present: normal lung sounds bilaterally. Absent: respiratory distress - Cardiovascular Cardiovascular Exam: Present: regular rate, normal rhythm. Absent: systolic murmur, diastolic murmur, rubs, gallop - GI/Abdominal GI/Abdominal exam: Present: soft, normal bowel sounds - Extremities Exam Extremities exam: Present: normal inspection - Back Exam Back exam: Present: normal inspection - Neurological Exam Neurological exam: Present: alert, oriented X3 - Psychiatric Psychiatric exam: Present: normal affect, normal mood - Skin Skin exam: Present: warm, dry, intact, normal color. Absent: rash ED Course Vital Signs 08/12/19 09:49 Temperature 98.6 F Pulse Rate 96 H Respiratory 16 Rate Blood Pressure 107/77 O2 Sat by Pulse 99 Oximetry ED Lower Extremity MDM - Radiology Data Radiology results: report reviewed, image reviewed interpreted by me: neg neg - Medical Decision Making lateral right ankle pain sp glf, mechanical, coming down steps. mild lateral mall. swelling xray noted iced/beatrice/crutches dc home with RICE therapy and pcp/ortho follow up neurovasc intact. Vital Signs 08/12/19 09:49 Temperature 98.6 F Pulse Rate 96 H Respiratory 16 Rate Blood Pressure 107/77 O2 Sat by Pulse 99 Oximetry - Differential Diagnosis ro fx Critical care attestation.: If time is entered above; I have spent that time in minutes in the direct care of this critically ill patient, excluding procedure time. ED Disposition Clinical Impression: Ankle sprain Disposition: DC-01 TO HOME OR SELFCARE Is pt being admited?: No Does the pt Need Aspirin: No Condition: Stable Additional Instructions: ice rest elevate beatrice and crutches for comfort follow up with pcp or ortho MD in 3 days referral below motrin or tylenol for pain Referrals: PATTI SANCHEZ MD [Primary Care Provider] - 3-5 Days DAXA BROWER MD [Staff Physician] - 3-5 Days DOMINIQUE CAMERON MD [Staff Physician] - 3-5 Days Time of Disposition: 10:31
--- NOTE | 2019-08-12 11:01 | XRay Report ---
RIGHT ANKLE HISTORY: Fall and ankle pain. COMPARISON: None. TECHNIQUE: 2 views of the right ankle obtained. FINDINGS: Bones: No fracture or dislocation. Joint spaces: Maintained. Soft tissues: No significant abnormality. Additional findings: None. IMPRESSION: 1. No significant abnormality. Signer Name: Barney Stiles MD Signed: 08/12/2019 10:57 AM Workstation Name: [id number]
== END 2019-08-12 11:17 | disposition home or self-care (01) ==
LOC: ED 09:20
DX: S93.401A Sprain of unspecified ligament of right ankle, initial encounter (principal); Z79.1 Long term (current) use of non-steroidal anti-inflammatories (NSAID); Z79.899 Other long term (current) drug therapy; X50.1XXA Overexertion from prolonged static or awkward postures, initial encounter; Y93.89 Activity, other specified; Y92.009 Unspecified place in unspecified non-institutional (private) residence as the place of occurrence of the external cause; Y99.8 Other external cause status